=== PATIENT | male | born 1975 | race Caucasian/White ===

== ENCOUNTER → 2020-09-24 | Outpatient (CLI) | payer OTHER ==
[~2020-09-24] MED LIST: PARO10TA57 PO; THYR30TA PO
--- NOTE | 2020-09-24 14:04 | RAD ---
L-spine 2 views INDICATION: Herniated disks and lower back and lower back pain COMPARISON: CT lumbar myelogram of 04/02/2016 FINDINGS: 5 lumbar type vertebrae are present in anatomic alignment. The bones are well-mineralized and show no fracture or aggressive appearing osseous lesions. The disc spaces are preserved except at L5-S1 where a prosthesis is now present. Garfield and pedicle screw construct posterior fusion hardware is also newly present at L5-S1 with no evidence of hardware loosening, migration or failure. Visualized sacroiliac joints are unremarkable. Bowel gas pattern is notable for a gas-filled loop of bowel across the midline. IMPRESSION: Postoperative changes from L5-S1 discectomy and interbody graft with garfield and pedicle screw construct fusion. No acute complications shown. Alignment appears anatomic on 2 views Electronically signed by: Dory Colindres MD (09/24/2020 2:01 PM) [id number]
== END ==
LOC: RAD 11:54
PROVIDERS: ATTEND Family Medicine
DX: M51.37 Other intervertebral disc degeneration, lumbosacral region (principal); Z98.1 Arthrodesis status
CPT/HCPCS: 72100